=== PATIENT | male | born 1950 | race Caucasian/White ===

== ENCOUNTER → 2017-03-08 | Outpatient (CLI) | payer OTHER ==
[~2017-03-08] MED LIST: ASPI325T39 PO; FLM4 PO; HYDR12.55; IMT100 PO; MIDRIN PO; MTRUNK PO; ONDA4TAB46 PO; PRLSR20 PO; RANI150T3 PO; TYLUNK PO
--- NOTE | 2017-03-09 08:56 | PAP/PSG TECHNICIAN REPORT ---
[facility] Bus Girl Polysomnogram Report Study name: None Report date: 03/09/2017 Study date: 03/08/2017 Referring Physician: Kit Conley M.D. Name: DANITA DEL TORO Interpreting Physician: Radha Conley M.D. Date of : 1950 Bus Girl: Melva Zuniga RPSCAMPOS. Sex: Male Age: 67 StudyType: PSG Weight: 207 lbs Height: 67 years, Height 6' 0" Neck Circum:15.5inches BMI: 28.07 Medications: Flomax 0.4mg, HCTZ 12.5mg, Proctofoam HC 1-1% rectal foam, ASA 81mg Patient History Study started on room air with no ETCO2 in room #6. 67 yr old male here tonight for a possible split psg. He complains of EDS, restlessness, cramps and pain in his legs. He snores at times. He sleeps with a pillow over his eyes/head. He has a history of migraines. His ESS=15/24. Neck circ=15.5inches. Parameters Monitored NPSG: E1-M2, E2-M1, Fp1-M2, Fp2-M1, F3-M2, F4-M2, F4-M1, C3-M2, C4-M2, C4-M1, O1-M2, O2-M2, O2-M1, T3-M2, T4-M1, P3-M2, P4-M1, CHIN1, CHIN2, HR, EKG, Legs, PFLOW, SNOR, FLOW, CFLOW, Tidal Volume, THOR, ABDO, SpO2, PLTH, CPRESS, ETCO2 Wave, ETCO2, pH Sleep Architecture Sleep Stages Time at Lights Off 9:45:55 PM STAGES Time (min.) TST (%) Time at Lights On 5:42:55 AM Wake 231.0 -- Total Recording Time (TRT) 477.00 min. N1 32.0 13 Total Sleep Period (TSP) 361.0 min. N2 137.5 56 Total Sleep Time (TST) 246.0min. N3 68.0 28 Awake Time 231.0 min. REM 8.5 3 Wake after Sleep Onset 205.0 min. Sleep Efficiency (SE) 52 % Sleep Onset Latency (ELMER) 26.0 min. Number of Stage 1 Shifts None Awakenings 53 Stage Changes 168 Number of REM periods 6 REM 8.5 3 REM Latency 153.5 min. NREM 237.5 97 Body Position Analysis Supine Right Left Side Prone Vertical Total Sleep Time (min.) 353.3 50.5 0.0 50.50 0.0 69.8 Total Sleep Time (%) 68% 21% 0% 21 0% 100% Total Sleep Time REM (min.) 8.5 0.0 0.0 None 0.0 0.0 Total Sleep Time NREM (min.) 158.0 50.5 0.0 None 0.0 29.0 Intermittent Wake (min.) 186.8 3.5 0.0 None 0.0 40.8 Total Sleep Period (%) 73% None None None None None Arousals Myoclonus (PLM) * Events Count Index Events Count Index Spontaneous 34 8 Events Awake (PLMW) 223 57.9 Respiratory 32 9.5 Events Asleep w/ Arousal (PLMA) 11 2.7 PLM 9 3 Events Asleep w/o Arousal (PLMS) 58 14.1 Snoring 3 1 Total Asleep 69 16.8 Total 78 19 Total 292 37 Respiratory Analysis * CA OA MA CH H RERA Total Count 0 0 0 0 53 0 53 Index 0.0 0.0 0.0 0 12.9 0 12.9 Mean Duration 0.0 0.0 0.0 0.00 22.6 0.0 22.6 Longest Duration 0.0 0.0 0.0 0.00 0.0 0.0 43.4 Respiratory Event Summary Total Supine ~Supine Right Left Prone REM NREM Apneas Count 0 0 0 0 N/A N/A 0 0 Index 0.0 0 0 0.0 N/A N/A 0 0 Hypopneas (4% Desat) Count 53 31 22 1 N/A N/A 3 50 Index 12.9 11.2 17 1.2 N/A N/A 21.2 12.6 Apneas & All Hypopneas Count 53 31 22 1 N/A N/A 3 50 Index 12.9 11 17 1 N/A N/A 21.2 12.6 Respiratory Events (Coning Machine Operator+All Hyp+RERA) Count 53 31 22 1 N/A N/A 3 50 Index 12.9 11 17 1.2 N/A N/A 21.2 12.6 Respiratory Related Arousal Count 32 31 15 0 N/A N/A 2 37 Index 9.5 9 11 0 N/A N/A 14 9 Snoring Analysis Supine Right Left Prone REM NREM Total Snore duration 1.3 min Snores count 24 5 N/A N/A 2 35 37 Snore mean duration 2.1 Sec Snores index 9 6 N/A N/A 14.1 8.8 9.0 TST with snoring (%) 0.5% Desaturation Event Summary: Minimum %SpO2 Event Count Mean/Min/Max Duration(sec.) Desaturation Index % Time In Bed > 90 104 28.9 / 9.0 / 60.0 28.5 47.3 86 - 90 32 21.3 / 9.0 / 49.8 8.0 51.9 81 - 85 1 36.2 / 36.2 / 36.2 16.4 0.8 76 - 80 0 N/A 0.0 0.0 71 - 75 0 N/A 0.0 0.0 66 - 70 0 N/A 0.0 0.0 61 - 65 0 N/A 0.0 0.0 56 - 60 0 N/A 0.0 0.0 51 - 55 0 N/A 0.0 0.0 < 50 0 N/A 0.0 0.0 Total REM NREM Awake <50% 0.0 min. 0.0 min. 0.0 min. 0.0 min. 51 - 60% 0.0 min. 0.0 min. 0.0 min. 0.0 min. 61 - 70% 0.0 min. 0.0 min. 0.0 min. 0.0 min. 71 - 80% 0.0 min. 0.0 min. 0.0 min. 0.0 min. 81 - 90% 243.6 min. 5.3 min. 152.1 min. 86.2 min. 91 - 100% 218.6 min. 3.2 min. 85.2 min. 130.2 min. Average 91 89 90 91 Minimum SpO2 82 82 82 82 Desaturation Event Index 14.8 35.3 16.9 13.2 # Desat. Events below 89% 70 3 43 24 Time(%) with Saturation below 89% 13.1 1.1 7.8 4.2 Time(min.) with Saturation below 89% 60.4 4.9 36.1 19.5 Time (mins) REM (mins) NREM (mins) % of TST SpO2 Below 90% 66 5 N61 41.8 SpO2 Below 88% 18 0 0 5 Heart Rate Analysis Min (bpm) Max (bpm) Average (bpm) Awake 50 91 60 NREM 49 71 55 REM 53 88 59 Overall 49 88 55 Supplemental O2 Values Minimum O2 level: None Value Start Time End Time Bus Girl Comments Mr. Del Toro slept in the right and supine positions. No cardiac arrhythmia noted. Some leg movements were noted. No bruxism noted. Snoring was noted and scored as a 1 on a scale of 1 through 5. (0=no snoring, 5=snoring loud enough to be heard through a closed door or down the [address] way) He did not use the restroom during the night. He stated that he slept a little worse than usual. He did not qualify for a split night study. The final report will be interpreted and signed by a sleep physician. The completed physician report will then be placed in the patient medical record. Therapy (cm H2O) 0 TIB (min.) 477.0 TST (min.) 246.0 Sleep Onset (min.) 26.0 REM Onset From Sleep (min.) 153.5 Sleep Efficiency % 52 Wakefulness (%) 48 Wakefulness (min.) 231.0 NREM 1 (%) 13 NREM 1 (min.) 32.0 NREM 2 (%) 56 NREM 2 (min.) 137.5 NREM 3 (%) 28 NREM 3 (min.) 68.0 REM (%) 3 REM (min.) 8.5 # Arousals 78 Arousal Index 19 # Snore 37 Snore Index 9.0 AHI 12.9 AHI Supine 11 AHI Non-Supine 17 NREM AHI 12.6 REM AHI 21.2 RDI 12.9 # Obstructive Apnea 0 # Central Apnea 0 # Mixed Apnea 0 # Hypopneas 53 RERAs 0 Total Respiratory Events 66 Time Below SpO2 89% (min.) 41.0 Mean NREM SpO2 (%) 90 Mean REM SpO2 (%) 89 Mean Sleep SpO2 (%) 90 Min NREM SpO2 (%) 82 Min REM SpO2 (%) 82 Position Supine (min.) 353.3 Position Non-supine (min.) 79.5 LM Index Sleep 16.8 LM Index NREM 16.9 LM Index REM 14.1 Mean Heart Rate (bpm) 55 Min Heart Rate (bpm) 49
--- NOTE | 2017-03-16 15:17 | POLYSOMNOGRAPH REPORT ---
REFERRING PERSON: Dr. Luis Felipe Conley. CHAIRMAN: Melva Zuniga. Mr. Jade is a 67-year-old male sent for a possible split night sleep study. He complains of restlessness and cramps in his legs at night as well as excessive daytime sleepiness and snoring. His [place] sleepiness scale score on the evening of this study is 15. BMI is 28.07. Following the technical and digital specifications of the [place] [employer] (AASM) a standard diagnostic polysomnogram was performed monitoring EEG, EOG, EMG (chin and leg deviations), oxygen saturation, body position, digital video, respiratory effort and airflow. The sleep Stage and event scoring was based on the AASM Manual for the Scoring of Sleep and Associated Events 2007 edition. Apneas are defined as a drop in the peak thermal sensor excursion by >90% of baseline for at least 10 seconds. Hypopneas were scored using the 4% oxygen desaturation rule (4A-[employer]) and a decrease in the nasal pressure excursions by >30% of baseline for at least 10 seconds. Respiratory effort-related arousal (RERA's) is defined as a sequence of breaths lasting at least 10 seconds characterized by increasing respiratory effort or flattening of the nasal pressure waveform leading to an arousal from sleep when the sequence of breaths does not meet criteria for an apnea or hypopnea. Apnea Hypopnea index (AHI) is defined as the number of apneas and hypopneas occurring in an hour of sleep. Respiratory disturbance index (RDI) is defined as the number of apneas, hypopneas, and RERA's occurring in an hour of sleep. Mr. Jade's total sleep period time was 361 minutes. Total sleep time was 246 minutes. Sleep efficiency was 52%. Latency to sleep onset was 26 minutes with wake after sleep onset of a prolonged 205 minutes. Total non-REM sleep time was 237.5 minutes. He spent 13% of that time in N1 sleep, 56% in N2 sleep and 28% in N3 sleep. REM latency was 153.5 minutes. Total REM sleep time was 8.5 minutes or 3% of total sleep time. There were 78 cortical arousals from sleep. 34 of these arousals were spontaneous, 32 were due to respiratory events, 9 due to periodic limb movements of sleep and 3 were due to snoring. There were 69 periodic limb movements noted on this test. Limb movement index was 16.8. Limb movement with arousal index was 2.7. There were no central obstructive or mixed apneas on this test. There were 53 hypopneas. Apnea-hypopnea index was 12.9, consistent with mild sleep apnea. Supine AHI was 11, REM AHI was 21.2. 37 snoring events were recorded. Total sleep time with snoring was 0.5%. Mean saturation was 91% with desaturations with respiratory events to 82%. Saturations were less than 89% for 60.4 minutes of recorded time. There was no cardiac ectopy noted on this study. During sleep, this patient's heart rate ranged from a low of 49 beats per minute to a high of 88 beats per minute. IMPRESSION AND PLAN: 1. Mr. Jade is a 67-year-old male with evidence of mild sleep apnea which is moderately severe in REM sleep as well as nocturnal hypoxemia on this sleep study. 2. The patient would likely benefit from positive airway pressure therapy. He should return to the sleep lab for a full night titration and then based on those results be started on equipment at home. A download from his machine can be reviewed in 1 month, both to check compliance as well as AHI and further pressure adjustments can occur at that time. 3. Should this patient be unwilling or unable to tolerate CPAP therapy, he should be referred to ear, nose and throat or oral surgery/dental medicine to discuss alternative treatments for sleep-disordered breathing.
== END | disposition home or self-care (01) ==
LOC: C.NEUR 21:00
PROVIDERS: ATTEND Family Medicine
DX: G47.10 Hypersomnia, unspecified (principal)